=== PATIENT | female | born 1980 | race Asian ===

== ENCOUNTER 2017-06-05 09:40 | Outpatient (CLI) | payer BC | END 2017-06-05 10:50 | disposition home or self-care (01) | LOC: MAMMO 09:40 | DX: Z12.31 Encounter for screening mammogram for malignant neoplasm of breast (principal) | CPT/HCPCS: G0202-TC ==

== ENCOUNTER 2017-11-16 08:22 | Emergency (ER) | payer BC ==
[~2017-11-16] VITALS: Ht 167.6 cm; Wt 110.2 kg
[2017-11-16 08:30] VITALS: TEMP 98.8
[2017-11-16] MEDS ORDERED: TOPAMAX50 MG OR (08:37)
[2017-11-16] MEDS ORDERED: SIMV40TA57 PO (08:37)
[2017-11-16 11:25] VITALS: BP 130/74
== END 2017-11-16 11:25 | disposition home or self-care (01) ==
LOC: ED 08:22
DX: G43.909 Migraine, unspecified, not intractable, without status migrainosus (principal)
CPT/HCPCS: 96360; 96361; 96374; 96375; 99284; J1100; J1170; J2405

== ENCOUNTER 2018-06-28 08:41 | Outpatient (CLI) | payer BC ==
[~2018-06-28 08:41] MED LIST: SIMV40TA57 PO; TOPAMAX50 MG OR
== END 2018-06-28 19:37 | disposition home or self-care (01) ==
LOC: MAMMO 08:41
DX: Z12.31 Encounter for screening mammogram for malignant neoplasm of breast (principal)

== ENCOUNTER 2019-06-30 08:12 | Outpatient (CLI) | payer BC | END 2019-06-30 13:00 | disposition home or self-care (01) | LOC: US 08:12 | DX: K21.9 Gastro-esophageal reflux disease without esophagitis (principal) ==

== ENCOUNTER 2019-07-02 09:00 | Outpatient (CLI) | payer BC | END 2019-07-02 23:59 | LOC: MAMMO 09:00 | DX: Z12.31 Encounter for screening mammogram for malignant neoplasm of breast (principal) ==

== ENCOUNTER 2020-07-12 08:55 | Outpatient (CLI) | payer BC | END 2020-07-12 22:57 | disposition home or self-care (01) | LOC: MAMMO 08:55 | DX: Z12.31 Encounter for screening mammogram for malignant neoplasm of breast (principal) ==